=== PATIENT | female | born 1960 | race Caucasian/White ===

== ENCOUNTER 2024-04-29 17:18 | Emergency (ER) | payer MEDICAID, MEDICARE ==
[2024-04-29] MEDS: LIDOCAINE W/EPINEPHRINE 1% 20ML VIAL SC ONE (18:25)
[2024-04-29] MEDS ORDERED: BOOSTRIX VACCINE (TETANUS/DIPHTH/ACEL. PERTUSSIS) 0.5ML SYR IM ONE (18:25)
[2024-04-29] MEDS ORDERED: MUPIROCIN 2% OINT 22 GM TUBE TOP ONE (19:40)
[2024-04-29] MEDS: BACITRACIN OINTMENT 30GM TUBE TOP STA (19:51)
[2024-04-29 19:57] VITALS: BP 153/70; TEMP 96.9; O2SAT 89
== END 2024-04-29 20:01 | disposition home or self-care (01) ==
LOC: M ED 17:18 → EDBD 17:18 → M ED 20:01
DX: S81.819A Laceration without foreign body, unspecified lower leg, initial encounter (principal); W26.9XXA Contact with unspecified sharp object(s), initial encounter; M25.572 Pain in left ankle and joints of left foot; Z88.0 Allergy status to penicillin; Z88.8 Allergy status to other drugs, medicaments and biological substances; Z91.040 Latex allergy status; Z87.891 Personal history of nicotine dependence; Y92.9 Unspecified place or not applicable; Y93.89 Activity, other specified; Y99.9 Unspecified external cause status

== ENCOUNTER 2024-05-09 13:11 | Emergency (ER) | payer MEDICARE ==
[~2024-05-09] VITALS: Ht 157.5 cm; Wt 77.3 kg
[2024-05-09 14:36] VITALS: TEMP 99.7; O2SAT 97
[2024-05-09 14:43] VITALS: BP 160/84
== END 2024-05-09 14:45 | disposition home or self-care (01) ==
LOC: M ED 13:11
DX: Z48.02 Encounter for removal of sutures (principal); F17.200 Nicotine dependence, unspecified, uncomplicated; Z88.0 Allergy status to penicillin; Z88.8 Allergy status to other drugs, medicaments and biological substances; Z91.040 Latex allergy status